=== PATIENT | male | born 1985 | race Caucasian/White ===

== ENCOUNTER 2017-02-24 23:49 | Emergency (ER) | payer MEDICAID ==
[2017-02-25 00:28] LABS: BASOPHIL % 0.3 % (0-2); PLATELET COUNT 190 x10^3mcL (130-400)
[2017-02-25 00:29] LABS: RED CELL DISTRIBUTION WIDTH 14.9 % (11.5-14.5)
[2017-02-25 00:40] LABS: ALBUMIN 4.5 g/dL (3.4-5.0); ALKALINE PHOSPHATASE 172 U/L (46-116); ALT/SGPT 64 U/L (16-63); AST/SGOT 77 U/L (15-37); BILIRUBIN TOTAL 1.2 mg/dL (0.20-1.00); CALCIUM 8.8 mg/dL (8.5-10.1); CARBON DIOXIDE 23.8 mmol/L (21-32); CHLORIDE SERUM 95 mmol/L (98-107); GFR1 > 60 mL/min; GLUCOSE SERUM 110 mg/dL (74-106); SODIUM SERUM 130 mmol/L (136-145)
[2017-02-25 00:41] LABS: TOTAL PROTEIN, SERUM 8.5 g/dL (6.4-8.2)
[2017-02-25 01:07] LABS: AMPHETAMINE QUAL UR POSITIVE (NEG <=1000)
[2017-02-25 02:30] VITALS: BP 114/58
== END 2017-02-25 02:30 | disposition home or self-care (01) ==
LOC: ED 23:49
PROVIDERS: Emergency Medicine
DX: K70.9 Alcoholic liver disease, unspecified (principal); F10.10 Alcohol abuse, uncomplicated; F19.10 Other psychoactive substance abuse, uncomplicated; E87.6 Hypokalemia; E86.0 Dehydration; R44.1 Visual hallucinations; R44.0 Auditory hallucinations
CPT/HCPCS: G0480; J2060; J2405; J3490; J7030

== ENCOUNTER 2017-04-05 12:26 | Emergency (ER) | payer MEDICAID ==
[2017-04-05 13:42] LABS: BASOPHIL % 0.7 % (0-2); PLATELET COUNT 207 x10^3mcL (130-400)
[2017-04-05 13:59] LABS: CALCIUM 7.9 mg/dL (8.5-10.1); CARBON DIOXIDE 24.5 mmol/L (21-32); CHLORIDE SERUM 106 mmol/L (98-107); CREATININE SERUM 0.9 mg/dL (0.7-1.3); GFR1 > 60 mL/min; GLUCOSE SERUM 95 mg/dL (74-106); POTASSIUM SERUM 3.3 mmol/L (3.5-5.1); SODIUM SERUM 142 mmol/L (136-145)
[2017-04-05 14:03] LABS: ALBUMIN 3.8 g/dL (3.4-5.0); ALKALINE PHOSPHATASE 74 U/L (46-116); ALT/SGPT 31 U/L (16-63); AST/SGOT 27 U/L (15-37); BILIRUBIN TOTAL 0.3 mg/dL (0.20-1.00); TOTAL PROTEIN, SERUM 7.4 g/dL (6.4-8.2)
[2017-04-05 16:58] VITALS: BP 117/82
== END 2017-04-05 16:58 | disposition home or self-care (01) ==
LOC: ED 12:26
PROVIDERS: Emergency Medicine
DX: F10.129 Alcohol abuse with intoxication, unspecified (principal)
CPT/HCPCS: G0480; J2060; J3411; J3475; J3490; J7030; Q0092

== ENCOUNTER 2017-08-23 08:52 | Emergency (ER) | payer MEDICAID ==
[~2017-08-23] VITALS: Ht 165.1 cm; Wt 80.3 kg
[2017-08-23 10:31] LABS: CALCIUM 8.5 mg/dL (8.5-10.1); CARBON DIOXIDE 30.1 mmol/L (21-32); CHLORIDE SERUM 105 mmol/L (98-107); CREATININE SERUM 0.9 mg/dL (0.7-1.3); GFR1 > 60 mL/min; GLUCOSE SERUM 95 mg/dL (74-106); POTASSIUM SERUM 3.8 mmol/L (3.5-5.1); SODIUM SERUM 140 mmol/L (136-145)
[2017-08-23 10:35] LABS: ALBUMIN 3.7 g/dL (3.4-5.0); ALKALINE PHOSPHATASE 73 U/L (46-116); ALT/SGPT 37 U/L (16-63); AMYLASE 71 U/L (25-115); AST/SGOT 22 U/L (15-37); BASOPHIL % 0.6 % (0-2); BILIRUBIN TOTAL 0.3 mg/dL (0.20-1.00); LIPASE 167 IU/L (73-393); PLATELET COUNT 245 x10^3mcL (130-400); TOTAL PROTEIN, SERUM 7.7 g/dL (6.4-8.2)
[2017-08-23 10:38] LABS: RED CELL DISTRIBUTION WIDTH 15.6 % (11.5-14.5)
[2017-08-23 12:11] VITALS: BP 134/79
== END 2017-08-23 12:11 | disposition home or self-care (01) ==
LOC: ED 08:52
PROVIDERS: Specialist
DX: R10.13 Epigastric pain (principal)
CPT/HCPCS: 83880; J1885; J3490; J7030